=== PATIENT | female | born 2000 | race Caucasian/White ===

== ENCOUNTER 2018-05-18 20:13 | Emergency (ER) | payer OTHER ==
[~2018-05-18] VITALS: Ht 154.9 cm; Wt 54.4 kg
[~2018-05-18 20:13] MED LIST: AMOXICILLIN500 MG PO
[2018-05-18] MEDS ORDERED: EPIPEN 2-P0.3 MG/0.3 IJ (20:45)
[2018-05-18] MEDS ORDERED: ATARAX,VISTARIL50 MG PO (20:46)
[2018-05-18] MEDS ORDERED: PREDNISONE20 M1 PO (20:46)
== END 2018-05-18 21:51 | disposition home or self-care (01) ==
LOC: ED 20:13
DX: L50.8 Other urticaria (principal); Z91.013 Allergy to seafood; Z91.018 Allergy to other foods; Z91.010 Allergy to peanuts

== ENCOUNTER 2018-05-19 05:31 | Emergency (ER) | payer OTHER ==
[~2018-05-19] VITALS: Ht 154.9 cm; Wt 54.4 kg
[~2018-05-19 05:31] MED LIST changes: +ATARAX,VISTARIL50 MG PO; +EPIPEN 2-P0.3 MG/0.3 IJ; +PREDNISONE20 M1 PO
[2018-05-20] MEDS ORDERED: ATIVAN0.5 MG PO (04:37)
== END 2018-05-19 07:10 | disposition home or self-care (01) ==
LOC: ED 05:31
DX: L50.8 Other urticaria (principal); Z91.013 Allergy to seafood; Z91.018 Allergy to other foods

== ENCOUNTER 2018-05-20 02:46 | Emergency (ER) | payer OTHER ==
[~2018-05-20] VITALS: Ht 154.9 cm; Wt 54.4 kg
[2018-05-20] MEDS ORDERED: ATIVAN0.5 MG PO (04:37)
== END 2018-05-20 04:32 | disposition home or self-care (01) ==
LOC: ED 02:46
DX: L50.8 Other urticaria (principal); F41.9 Anxiety disorder, unspecified; Z91.013 Allergy to seafood; Z91.010 Allergy to peanuts